=== PATIENT | female | born 1980 | race Caucasian/White ===

== ENCOUNTER 2019-10-07 07:41 | Outpatient (CLI) | payer BC | END 2019-10-07 23:59 | disposition home or self-care (01) | LOC: LAB 07:41 | PROVIDERS: ATTEND Specialist | DX: Z01.812 Encounter for preprocedural laboratory examination (principal); Z11.59 Encounter for screening for other viral diseases; T84.84XD Pain due to internal orthopedic prosthetic devices, implants and grafts, subsequent encounter ==